=== PATIENT | male | born 1960 | race African-American/Black ===

== ENCOUNTER 2019-01-25 14:58 | Inpatient (IN) | payer OTHER ==
[2019-01-25 18:03] VITALS: BMI 20.4
[2019-01-25] MEDS ORDERED: MENTHOL/PHENOL 1 EACH UD MM PRN (19:52)
[2019-01-25] MEDS ORDERED: MAG HYDROX/AL HYDROX/SIMETH 30 ML UNIT-DOSE CUP PO PRN (19:52)
[2019-01-25] MEDS ORDERED: ACETAMINOPHEN 325 MG TABLET (FP) PO PRN ×2 (19:52)
[2019-01-25] MEDS ORDERED: MAGNESIUM HYDROX 2400MG/30ML ORAL SUSPENSION 30 ML CUP PO PRN (19:52)
[2019-01-25] MEDS ORDERED: IBUPROFEN 400 MG TABLET (FP) PO PRN (19:52)
[2019-01-25] MEDS ORDERED: chlordiazePOXIDE HCL 10 MG CAPSULE PO PRN (19:52)
[2019-01-25] MEDS ORDERED: hydrOXYzine PAMOATE 25 MG CAPSULE (FP) PO PRN (19:52)
[2019-01-25] MEDS ORDERED: BISMUTH SUBSALICYLATE 524 MG/30 ML UD PO PRN (19:52)
[2019-01-25] MEDS ORDERED: MAGNESIUM CITRATE 300 ML BOTTLE PO PRN (19:52)
[2019-01-25] MEDS ORDERED: METHOCARBAMOL 500 MG TABLET PO PRN (19:52)
--- NOTE | 2019-01-25 19:52 | HP ---
CIWA Score Nausea/Vomitin Muscle Tremors: 2 Anxiety: 2 Agitation: 1-Slight > Activity Paroxysmal Sweats: 2 Orientation: 0-Oriented Tacttile Disturbances: 2-Mild Itch/Numbness/Burn Auditory Disturbances: 1-Very Mild Visual Disturbances: 0-None Headache: 2-Mild CIWA-Ar Total Score: 14 - Admission Criteria OASAS Guidelines: Admission for Medically Managed Detox: Requires at least one of the followin. CIWA greater than 12 2. Seizures within the past 24 hours 3. Delirium tremens within the past 24 hours 4. Hallucinations within the past 24 hours 5. Acute intervention needed for co occurring medical disorder 6. Acute intervention needed for co occurring psychiatric disorder 7. Severe withdrawal that cannot be handled at a lower level of care (continued vomiting, continued diarrhea, abnormal vital signs) requiring intravenous medication and/or fluids 8. Patient presents the following: CIWA greater than 12 Admission Criteria Met: Admission criteria met Admission ROS BHS - HPI Chief Complaint: I need detox and longer time to stop drinking Allergies/Adverse Reactions: Allergies Allergy/AdvReac Type Severity Reaction Status Date / Time No Known Allergies Allergy Verified 01/25/19 18:04 History of Present Illness: 58 y/o man presents for detox, he reports he has never been in detox, he denies blackouts or alcohol related seizure. He reports recent hospitalization due to eczema exacerbation. Exam Limitations: No Limitations - Ebola screening Have you traveled outside of the country in the last 21 days: No (N) Have you had contact with anyone from an Ebola affected area: No Have you been sick,other than usual withdrawal symptoms: No Do you have a fever: No - Review of Systems Constitutional: Chills, Loss of Appetite, Changes in sleep EENT: reports: No Symptoms Reported, Nose Congestion Respiratory: reports: No Symptoms reported Cardiac: reports: No Symptoms Reported GI: reports: Nausea, Poor Appetite : reports: No Symptoms Reported Musculoskeletal: reports: Back Pain, Muscle Pain Integumentary: reports: Other (eczema) Neuro: reports: Headache, Numbness Endocrine: reports: No Symptoms Reported Hematology: reports: No Symptoms Reported Psychiatric: reports: No Sypmtoms Reported Other Systems: Reviewed and Negative Patient History - Patient Medical History Hx Anemia: No Hx Asthma: Yes Hx Chronic Obstructive Pulmonary Disease (COPD): No Hx Cancer: No Hx Cardiac Disorders: No Hx Congestive Heart Failure: No Hx Hypertension: No Hx Hypercholesterolemia: No Hx Pacemaker: No HX Cerebrovascular Accident: No Hx Seizures: No Hx Dementia: No Hx Diabetes: No Hx Gastrointestinal Disorders: No Hx Liver Disease: No Hx Genitourinary Disorders: No Hx Sexually Transmitted Disorders: No Hx Renal Disease (ESRD): No Hx Thyroid Disease: No Hx Human Immunodeficiency Virus (HIV): No Hx Hepatitis C: No Hx Depression: No Hx Suicide Attempt: No Hx Bipolar Disorder: No Hx Schizophrenia: No - Patient Surgical History Past Surgical History: No - PPD History Previous Implant?: No PPD to be Administered?: Yes - Smoking Cessation Smoking history: Former smoker Have you smoked in the past 12 months: No Hx Chewing Tobacco Use: No Initiated information on smoking cessation: No - Substances abused Alcohol Substance route: Oral Frequency: Daily Amount used: 6 PINTS VODKA Age of first use: 12 Date of last use: 01/24/19 Crack Substance route: Smoking Frequency: Daily Amount used: $20 Age of first use: 24 Date of last use: 01/24/19 Family Disease History - Family Disease History Family History: Denies Admission Physical Exam [facility] - Vital Signs Vital Signs: Vital Signs - 24 hr 01/25/19 17:50 Temperature 97.3 F L Pulse Rate 82 Respiratory 18 Rate Blood Pressure 106/72 - Physical General Appearance: Yes: No Apparent Distress HEENTM: Yes: EOMI, Hearing grossly Normal, Nasal Congestion, Other (poor dentition) Respiratory: Yes: Chest Non-Tender, Lungs Clear, Normal Breath Sounds, Decreased Breath Sounds, No Respiratory Distress Neck: Yes: No masses,lesions,Nodules, Supple Breast: Yes: Breast Exam Deferred Cardiology: Yes: Regular Rhythm Abdominal: Yes: Normal Bowel Sounds, Non Tender, Soft Genitourinary: Yes: Within Normal Limits Back: Yes: Normal Inspection Musculoskeletal: Yes: full range of Motion, Gait Steady Extremities: Yes: Tremors, Coldness Neurological: Yes: circle beveler II-XII NML intact, Fully Oriented, Normal Response, Respond to painful stimul, Numbness Integumentary: Yes: Clammy, Other (diffuse scratch oquendo) Lymphatic: Yes: Within Normal Limits - Diagnostic (1) Uncomplicated alcohol withdrawal Current Visit: Yes Status: Acute (2) Asthma Current Visit: Yes Status: Acute Qualifiers: Asthma severity: moderate Asthma persistence: persistent (3) Eczema Current Visit: Yes Status: Acute Qualifiers: Eczema type: intrinsic Qualified Code(s): L20.84 - Intrinsic (allergic) eczema Cleared for Admission S - Detox or Rehab [facility] Level of Care: Medically Managed Detox Regimen/Protocol: Librium Claeared for Rehab Admission: No Breathalyzer - Breathalyzer Breathalyzer: 0 Urine Drug Screen - Test Device Lot number: [id number] Expiration date: 09/26/20 - Control Is test valid?: Yes - Results Drug screen NEGATIVE: No Urine drug screen results: ADRIANA-Cocaine, BZO-Benzodiazepines Inpatient Rehab Admission - Rehab Decision to Admit Inpatient rehab admission?: No
[2019-01-25] MEDS ORDERED: ALBUTEROL SO4 8 GM HFA INHALER IH PRN (19:59)
[2019-01-25] MEDS: chlordiazePOXIDE HCL 25 MG CAPSULE PO SCH (22:37)
[2019-01-25] MEDS: MELATONIN 5 MG TABLETS PO PRN (22:37)
[2019-01-25] MEDS: THIAMINE HCL 100 MG TABLET (FP) PO SCH (22:37)
[2019-01-26] MEDS: chlordiazePOXIDE HCL 25 MG CAPSULE PO SCH ×2 (05:50→13:17)
[2019-01-26] MEDS: HYDROCORTISONE 2.5% LOTION - 1 BOTTLE TP PRN ×2 (06:40→23:00)
[2019-01-26 09:30] LABS: HEMATOCRIT 34.3 % (35.4-49); HEMOGLOBIN 11.3 GM/dL (11.7-16.9); MCHC 32.9 g/dl (32.0-35.9); MEAN PLT VOLUME 8.2 fl (7.5-11.1); RBC 4.03 M/mm3 (4.00-5.60); RDW 17.1 % (11.9-15.9); WHITE BLOOD COUNT 4.8 K/mm3 (4.0-10.0)
[2019-01-26 09:38] LABS: ALBUMIN 2.9 g/dl (3.4-5.0); BILIRUBIN,TOTAL 0.8 mg/dL (0.2-1); BLOOD UREA NITROGEN 25.2 mg/dL (7-18); CALCIUM 8.8 mg/dL (8.5-10.1); CREATININE 1.6 mg/dL (0.55-1.3); POTASSIUM 4.2 mmol/L (3.5-5.1); TOT PROT 6.6 g/dl (6.4-8.2)
[2019-01-26 09:58] LABS: PLATELET COUNT 293 K/MM3 (134-434)
[2019-01-26 10:20] LABS: PH,URINE 6.5 (5.0-8.0); URINE APPEARANCE CLEAR; URINE BILIRUBIN NEGATIVE (NEGATIVE); URINE COLOR YELLOW; URINE GLUCOSE (UA) NEGATIVE (NEGATIVE); URINE KETONE TRACE (NEGATIVE); URINE LEUK ESTERASE NEGATIVE (NEGATIVE); URINE NITRITE NEGATIVE (NEGATIVE); URINE PROTEIN NEGATIVE (NEGATIVE)
[2019-01-26] MEDS: PRENATAL VITAMINS W/ FOLIC ACID TABLET (FP) PO SCH (10:20)
--- NOTE | 2019-01-26 12:10 | PN ---
[facility] CIWA - CIWA Score Nausea/Vomitin-No Nausea/No Vomiting Muscle Tremors: 3 Anxiety: 3 Agitation: 3 Paroxysmal Sweats: 1-Minimal Palms Moist Orientation: 0-Oriented Tacttile Disturbances: 0-None Auditory Disturbances: 0-None Visual Disturbances: 0-None Headache: 0-None Present CIWA-Ar Total Score: 10 [facility] Progress Note (SOAP) Subjective: New pt admitted yesterday. c/o slight anxiety, fatigue. Pt was seen in bed at rounds time but awake on verbal command. Objective: 01/26/19 12:09 Vital Signs - 24 hr 01/25/19 01/25/19 01/26/19 17:50 23:10 00:45 Temperature 97.3 F L 97.0 F L Pulse Rate 82 80 Respiratory 18 18 18 Rate Blood Pressure 106/72 141/80 01/26/19 01/26/19 01/26/19 03:45 06:17 09:41 Temperature 97.8 F 97.5 F L Pulse Rate 87 87 Respiratory 18 18 18 Rate Blood Pressure 108/62 96/55 L Laboratory Tests 01/26/19 01/26/19 01/26/19 07:30 07:30 07:30 WBC 4.8 RBC 4.03 Hgb 11.3 L Hct 34.3 L MCV 85.0 MCH 28.0 MCHC 32.9 RDW 17.1 H Plt Count 293 MPV 8.2 Sodium 137 Potassium 4.2 Chloride 106 Carbon Dioxide 27 Anion Gap 5 L BUN 25.2 H Creatinine 1.6 H Est GFR (CKD-EPI)AfAm 53.85 Est GFR (CKD-EPI)NonAf 46.46 Random Glucose 87 Calcium 8.8 Total Bilirubin 0.8 AST 20 ALT 17 Alkaline Phosphatase 68 Total Protein 6.6 Albumin 2.9 L Urine Color Urine Appearance Urine pH Ur Specific [place] Urine Protein Urine Glucose (UA) Urine Ketones Urine Blood Urine Nitrite Urine Bilirubin Urine Urobilinogen Ur Leukocyte Esterase RPR Titer Nonreactive 01/26/19 08:40 WBC RBC Hgb Hct MCV MCH MCHC RDW Plt Count MPV Sodium Potassium Chloride Carbon Dioxide Anion Gap BUN Creatinine Est GFR (CKD-EPI)AfAm Est GFR (CKD-EPI)NonAf Random Glucose Calcium Total Bilirubin AST ALT Alkaline Phosphatase Total Protein Albumin Urine Color Yellow Urine Appearance Clear Urine pH 6.5 Ur Specific [place] 1.021 Urine Protein Negative Urine Glucose (UA) Negative Urine Ketones Trace H Urine Blood Negative Urine Nitrite Negative Urine Bilirubin Negative Urine Urobilinogen 1.0 Ur Leukocyte Esterase Negative RPR Titer Assessment: 01/26/19 12:09 withdrawal sx Plan: continue detox increase po fluids
[2019-01-26] MEDS: THIAMINE HCL 100 MG TABLET (FP) PO SCH (22:25)
[2019-01-26] MEDS: MELATONIN 5 MG TABLETS PO PRN (22:25)
[2019-01-26] MEDS: chlordiazePOXIDE 5 MG CAPSULE PO SCH (22:25)
[2019-01-27] MEDS: chlordiazePOXIDE 5 MG CAPSULE PO SCH ×2 (06:03→12:20)
[2019-01-27] MEDS: PRENATAL VITAMINS W/ FOLIC ACID TABLET (FP) PO SCH (10:22)
--- NOTE | 2019-01-27 14:14 | PN ---
[facility] CIWA - CIWA Score Nausea/Vomitin-No Nausea/No Vomiting Muscle Tremors: None Anxiety: 3 Agitation: 0-Normal Activity Paroxysmal Sweats: No Perspiration Orientation: 0-Oriented Tacttile Disturbances: 1-Very Mild Itch/Numbness Auditory Disturbances: 2-Mild Harshness/Frighten Visual Disturbances: 3-Moderate Sensitivity Headache: 0-None Present CIWA-Ar Total Score: 9 S Progress Note (SOAP) Subjective: Anxious, Fatigue. Patient Reports That Withdrawal / Detox symptoms in general have subsided since admission to Detox Unit. Objective: PATIENT A & O X 3. IN NO ACUTE DISTRESS. 01/27/19 14:10 Vital Signs Temperature 97.5 F L 01/27/19 13:25 Pulse Rate 82 01/27/19 13:25 Respiratory Rate 18 01/27/19 13:25 Blood Pressure 129/79 01/27/19 13:25 O2 Sat by Pulse Oximetry (%) Laboratory Tests 01/26/19 01/26/19 01/26/19 07:30 07:30 07:30 WBC 4.8 RBC 4.03 Hgb 11.3 L Hct 34.3 L MCV 85.0 MCH 28.0 MCHC 32.9 RDW 17.1 H Plt Count 293 MPV 8.2 Sodium 137 Potassium 4.2 Chloride 106 Carbon Dioxide 27 Anion Gap 5 L BUN 25.2 H Creatinine 1.6 H Est GFR (CKD-EPI)AfAm 53.85 Est GFR (CKD-EPI)NonAf 46.46 Random Glucose 87 Calcium 8.8 Total Bilirubin 0.8 AST 20 ALT 17 Alkaline Phosphatase 68 Total Protein 6.6 Albumin 2.9 L Urine Color Urine Appearance Urine pH Ur Specific [place] Urine Protein Urine Glucose (UA) Urine Ketones Urine Blood Urine Nitrite Urine Bilirubin Urine Urobilinogen Ur Leukocyte Esterase RPR Titer Nonreactive 01/26/19 08:40 WBC RBC Hgb Hct MCV MCH MCHC RDW Plt Count MPV Sodium Potassium Chloride Carbon Dioxide Anion Gap BUN Creatinine Est GFR (CKD-EPI)AfAm Est GFR (CKD-EPI)NonAf Random Glucose Calcium Total Bilirubin AST ALT Alkaline Phosphatase Total Protein Albumin Urine Color Yellow Urine Appearance Clear Urine pH 6.5 Ur Specific [place] 1.021 Urine Protein Negative Urine Glucose (UA) Negative Urine Ketones Trace H Urine Blood Negative Urine Nitrite Negative Urine Bilirubin Negative Urine Urobilinogen 1.0 Ur Leukocyte Esterase Negative RPR Titer LABS NOTED. Assessment: 01/27/19 14:10 WITHDRAWAL SYMPTOMS. AZOTEMIA. 01/27/19 14:12 Plan: CONTINUE DETOX. D/C IBUPROFEN AND MAGNESIUM-CONTAINING MEDS. FOR ABNORMAL ADMISSION RENAL LAB VALUES. BASIC METABOLIC PANEL TOMORROW AM FOR ABNORMAL RENAL LAB VALUES NOTED ON DETOX ADMISSION. PATIENT IS CURRENTLY RECEIVING DAILY MVI CONTAINING B VITAMINS AND IRON WHILE ADMITTED FOR DETOX.
[2019-01-27] MEDS ORDERED: chlordiazePOXIDE HCL 10 MG CAPSULE PO PRN (21:00)
[2019-01-27] MEDS: THIAMINE HCL 100 MG TABLET (FP) PO SCH (21:37)
[2019-01-27] MEDS: chlordiazePOXIDE HCL 10 MG CAPSULE PO SCH (21:37)
[2019-01-27] MEDS: MELATONIN 5 MG TABLETS PO PRN (21:39)
[2019-01-28] MEDS: chlordiazePOXIDE HCL 10 MG CAPSULE PO SCH ×3 (05:18→21:04)
--- NOTE | 2019-01-28 09:37 | PN ---
[facility] CIWA - CIWA Score Nausea/Vomitin-Mild Nausea/No Vomiting Muscle Tremors: 1-None Visible, but [place] Anxiety: 1-Mildly Anxious Agitation: 1-Slight > Activity Paroxysmal Sweats: No Perspiration Orientation: 0-Oriented Tacttile Disturbances: 0-None Auditory Disturbances: 0-None Visual Disturbances: 0-None Headache: 2-Mild CIWA-Ar Total Score: 6 [facility] Progress Note (SOAP) Subjective: alert,irritable,anxious,interrupted sleep Objective: 01/28/19 09:36 Vital Signs Temperature 97.1 F L 01/28/19 09:13 Pulse Rate 94 H 01/28/19 09:13 Respiratory Rate 18 01/28/19 09:13 Blood Pressure 112/78 01/28/19 09:13 O2 Sat by Pulse Oximetry (%) Assessment: 01/28/19 09:36 withdrawal symptom Plan: continue detox,discharge in am
[2019-01-28 10:01] LABS: BLOOD UREA NITROGEN 14.4 mg/dL (7-18); CREATININE 1.3 mg/dL (0.55-1.3); POTASSIUM 4.4 mmol/L (3.5-5.1)
[2019-01-28] MEDS: PRENATAL VITAMINS W/ FOLIC ACID TABLET (FP) PO SCH (10:25)
[2019-01-28] MEDS: MELATONIN 5 MG TABLETS PO PRN (21:04)
[2019-01-28] MEDS: THIAMINE HCL 100 MG TABLET (FP) PO SCH (21:04)
[2019-01-29 09:05] VITALS: BP 118/64; PULSE 76; TEMP 96.6
[2019-01-29] MEDS: PRENATAL VITAMINS W/ FOLIC ACID TABLET (FP) PO SCH (10:22)
--- NOTE | 2019-01-29 19:33 | DS ---
[facility] Detox Discharge Summary Admission Date: 01/25/19 Discharge Date: 01/29/19 - History Present History: Alcohol Dependence Additional Comments: PATIENT GOING TO [facility] ([place], [place]) FOR AFTERCARE. PATIENT DECLINED OFFER OF MEDICATION PRESCRIPTION FOR HOME MEDICATION AT TIME OF DISCHARGE FROM DETOX, NOTING THAT HE CURRENTLY HAS ADEQUATE SUPPLIES OF ALL PRESCRIBED HOME MEDICATIONS WITH HIS BELONGINGS. PATIENT WAS DISCHARGED FROM DETOX UNIT IN STABLE MEDICAL CONDITION. Pertinent Past History: Asthma, Eczema, Azotemia, Anemia. - Physical Exam Results Vital Signs: Vital Signs Temperature 96.6 F L 01/29/19 09:04 Pulse Rate 76 01/29/19 09:04 Respiratory Rate 18 01/29/19 09:04 Blood Pressure 118/64 01/29/19 09:04 O2 Sat by Pulse Oximetry (%) Pertinent Admission Physical Exam Findings: WITHDRAWAL SYMPTOMS. Laboratory Tests 01/26/19 01/26/19 01/26/19 07:30 07:30 07:30 WBC 4.8 RBC 4.03 Hgb 11.3 L Hct 34.3 L MCV 85.0 MCH 28.0 MCHC 32.9 RDW 17.1 H Plt Count 293 MPV 8.2 Sodium 137 Potassium 4.2 Chloride 106 Carbon Dioxide 27 Anion Gap 5 L BUN 25.2 H Creatinine 1.6 H Est GFR (CKD-EPI)AfAm 53.85 Est GFR (CKD-EPI)NonAf 46.46 Random Glucose 87 Calcium 8.8 Total Bilirubin 0.8 AST 20 ALT 17 Alkaline Phosphatase 68 Total Protein 6.6 Albumin 2.9 L Urine Color Urine Appearance Urine pH Ur Specific [place] Urine Protein Urine Glucose (UA) Urine Ketones Urine Blood Urine Nitrite Urine Bilirubin Urine Urobilinogen Ur Leukocyte Esterase RPR Titer Nonreactive 01/26/19 01/28/19 08:40 06:30 WBC RBC Hgb Hct MCV MCH MCHC RDW Plt Count MPV Sodium 138 Potassium 4.4 Chloride 107 Carbon Dioxide 25 Anion Gap 6 L BUN 14.4 Creatinine 1.3 Est GFR (CKD-EPI)AfAm 69.22 Est GFR (CKD-EPI)NonAf 59.72 Random Glucose 84 Calcium 9.0 Total Bilirubin AST ALT Alkaline Phosphatase Total Protein Albumin Urine Color Yellow Urine Appearance Clear Urine pH 6.5 Ur Specific [place] 1.021 Urine Protein Negative Urine Glucose (UA) Negative Urine Ketones Trace H Urine Blood Negative Urine Nitrite Negative Urine Bilirubin Negative Urine Urobilinogen 1.0 Ur Leukocyte Esterase Negative RPR Titer LABS NOTED. - Treatment Hospital Course: Detox Protocol Followed, Detoxed Safely, Responded well, Discharged Condition Good, Rehab Referral Accepted Patient has Accepted a Rehab Referral to: [facility] ([place], [place]). - Medication Discharge Medications: Ambulatory Orders Albuterol Sulfate Inhaler - [Ventolin Hfa Inhaler -] 1 - 2 inh PO Q4H 01/25/19 Albuterol Sulfate Inhaler - [Ventolin Hfa Inhaler -] 2 inh PO Q4H 01/25/19 Montelukast Sodium [Singulair] 10 mg PO DAILY 01/25/19 Prednisone 10 mg PO DAILY 01/25/19 hydrOXYzine PAMOATE [Vistaril -] 50 mg PO TID 01/25/19 - Diagnosis (1) Asthma Status: Acute Qualifiers: Asthma severity: moderate Asthma persistence: persistent Asthma complication type: uncomplicated Qualified Code(s): J45.40 - Moderate persistent asthma, uncomplicated (2) Azotemia Status: Acute (3) Eczema Status: Acute Qualifiers: Eczema type: intrinsic Qualified Code(s): L20.84 - Intrinsic (allergic) eczema (4) Uncomplicated alcohol withdrawal Status: Acute - AMA Did Patient Leave Against Medical Advice: No
== END 2019-01-29 12:00 | disposition home or self-care (01) | DRG 774 ==
LOC: YASAS 14:58 → Y3N 20:25
PROVIDERS: ADMIT Surgery; ATTEND Surgery
PROC: HZ2ZZZZ Detoxification Services for Substance Abuse Treatment (ICD-10-PCS; principal; 2019-01-25)
DX: F10.230 Alcohol dependence with withdrawal, uncomplicated (principal); F14.20 Cocaine dependence, uncomplicated; J45.40 Moderate persistent asthma, uncomplicated; L20.84 Intrinsic (allergic) eczema; R79.89 Other specified abnormal findings of blood chemistry
CPT/HCPCS: 36415; 80048; 80053; 81003; 85027; 86593